=== PATIENT | male | born 1970 | race Caucasian/White ===

== ENCOUNTER 2021-01-08 15:35 | Emergency (ER) | payer MEDICARE ==
[~2021-01-08] VITALS: Ht 180.3 cm; Wt 96.6 kg
== END 2021-01-08 18:55 | disposition home or self-care (01) ==
LOC: ER1 15:35
DX: Z23 Encounter for immunization (principal); U07.1 COVID-19; F17.210 Nicotine dependence, cigarettes, uncomplicated; Z88.8 Allergy status to other drugs, medicaments and biological substances; Z90.89 Acquired absence of other organs
CPT/HCPCS: 99283; M0243